=== PATIENT | female | born 1930 | race Caucasian/White ===

== ENCOUNTER → 2019-06-01 | Outpatient (CLI) | payer MEDICARE | LOC: M.MRI 05-26 15:32 | DX: I65.23 Occlusion and stenosis of bilateral carotid arteries (principal); R90.82 White matter disease, unspecified; M47.892 Other spondylosis, cervical region; M48.02 Spinal stenosis, cervical region ==

== ENCOUNTER → 2019-10-20 | Outpatient (CLI) | payer MEDICARE | LOC: M.RAD 14:12 | PROVIDERS: ATTEND Internal Medicine | DX: R60.0 Localized edema (principal); M86.261 Subacute osteomyelitis, right tibia and fibula ==

== ENCOUNTER → 2019-10-27 | Outpatient (CLI) | payer MEDICARE | LOC: M.WC 10:00 | PROVIDERS: ATTEND Family Medicine | DX: S81.801A Unspecified open wound, right lower leg, initial encounter (principal); I87.2 Venous insufficiency (chronic) (peripheral); Z90.710 Acquired absence of both cervix and uterus; Z79.82 Long term (current) use of aspirin; X58.XXXA Exposure to other specified factors, initial encounter; Y93.89 Activity, other specified; Y92.89 Other specified places as the place of occurrence of the external cause; Y99.8 Other external cause status ==

== ENCOUNTER → 2019-11-03 | Outpatient (CLI) | payer MEDICARE | LOC: M.WC 01:23 | PROVIDERS: ATTEND Family Medicine | DX: S81.801D Unspecified open wound, right lower leg, subsequent encounter (principal); I87.2 Venous insufficiency (chronic) (peripheral); Z79.82 Long term (current) use of aspirin; X58.XXXD Exposure to other specified factors, subsequent encounter ==

== ENCOUNTER → 2019-11-10 | Outpatient (CLI) | payer MEDICARE | LOC: M.WC 01:14 | PROVIDERS: ATTEND Family Medicine | DX: S81.801D Unspecified open wound, right lower leg, subsequent encounter (principal); I87.2 Venous insufficiency (chronic) (peripheral); Z79.82 Long term (current) use of aspirin; W20.8XXD Other cause of strike by thrown, projected or falling object, subsequent encounter ==

== ENCOUNTER → 2019-11-17 | Outpatient (CLI) | payer MEDICARE | LOC: M.WC 03:47 | PROVIDERS: ATTEND Family Medicine | DX: S81.801D Unspecified open wound, right lower leg, subsequent encounter (principal); I87.2 Venous insufficiency (chronic) (peripheral); Z79.82 Long term (current) use of aspirin; W19.XXXD Unspecified fall, subsequent encounter ==

== ENCOUNTER → 2019-11-24 | Outpatient (CLI) | payer MEDICARE | LOC: M.WC 03:35 | PROVIDERS: ATTEND Family Medicine | DX: S81.801D Unspecified open wound, right lower leg, subsequent encounter (principal); I87.2 Venous insufficiency (chronic) (peripheral); Z79.82 Long term (current) use of aspirin; W19.XXXD Unspecified fall, subsequent encounter ==